=== PATIENT | female | born 1980 ===

== ENCOUNTER → 2017-01-10 | Day surgery (SDC) | payer OTHER ==
--- NOTE | 2017-01-09 14:28 | GHP ---
[f rep st] HISTORY AND PHYSICAL DATE OF ADMISSION: 01/10/2017 The patient is a 36-year-old 2, para 1, who was being seen for a new OB appointment, ultrasound was done, and it was found that there was no heart rate at 9 weeks and 2 days. The original ultrasound was done on 01/06/2017, and this showed 1 fetus, a gestational sac at 6 weeks and 6 days, a crown-rump length at 6 weeks and 1 day, with a yolk sac that was enlarged at 6 mm, and no cardiac activity. The patient requested beta quantitatives. The first one was done on 01/06, and that was [phone]. The second one was done on 01/08, that was at [phone]. The patient requested second ultrasound, which was done on 2016, where again, size less than dates by 24 days, gestational sac was flattened. Gestational age by LMP should equal out to 9 weeks and 5 days, but it was found to only be 6 weeks size today. The patient then consented to D and C, which was scheduled on 01/10/2017 at noon. Per patient, is A negative, so patient will need RhoGAM with D and C. MEDICAL HISTORY: Previously had mono in childhood. The patient had scarlet fever in 2014. Previous history: Previous in 2013, had a baby girl at 8 pounds, 3 ounces at 40 and 3/7 weeks, arrest of dilatation, GDM. The patient's baby was found to have a cardiomyopathy at 5 months, and baby ended up getting a heart transplant. Surgical history:previous section in 2013 GYNECOLOGICAL HISTORY: Previous OCP use. Previous abnormal Pap. Positive HPV in 2013.Cryosurgery in 2013. Rare yeast infections. ALLERGIES: NKDA. MEDICATIONS: None. SOCIAL HISTORY: Denies drug use. No longer a smoker, quit with her last . The patient's significant other is Mariano. FAMILY HISTORY: Noncontributory. PHYSICAL EXAMINATION: GENERAL: Patient is awake, alert, oriented x3. LUNGS: Clear bilaterally. ABDOMEN: Bowel sounds are positive in all 4 quadrants. EXTREMITIES: DTRs were 1+ bilaterally. No clonus. Homans sign was negative. VITAL SIGNS: With initial new OB, were within normal limits. Blood pressure was 114/50. The patient today, on 01/09/2017, with positive smal amount of vaginal bleeding. PLAN OF CARE: 1. With visit today, all risks, benefits, and alternatives of D and C were discussed. The patient was made aware of n.p.o. after midnight. The patient understood she needed to be in labor and delivery by 10 a.m. on 01/10/2017 for noon surgery.. 2. Patient was made aware that she is Rh-negative and needs to receive RhoGAM after this procedure.. 3. This is a missed AB. No heart, no cardiac activity on ultrasound 1 or ultrasound 2. Beta quantitatives were declining. /[id number]/MODL MTDD
[~2017-01-10] MED LIST: DOXYCYCLINE HYCLATE 100 MG CAP/TAB ONE; DOXYCYCLINE HYCLATE 100 MG CAP/TAB PO ONE; KETOROLAC 30 MG/1 ML SDV ONE; LIDOCAINE 2% 5 ML SDV ONE; METOCLOPRAMIDE 10 MG/2 ML VIAL IVP PRN; MIDAZOLAM 2 MG/2 ML VIAL IVP ONE; NALOXONE HCL 0.4 MG/ML INJ IVP PRN; ONDANSETRON 4 MG/2 ML VIAL IVP PRN; PROPOFOL 200 MG/20 ML VIAL ONE; PROPOFOL/EMULSION 500 MG/50 ML BOTTLE IV ONE; fentaNYL 100 MCG/2 ML INJ IVP PRN; fentaNYL 100 MCG/2 ML INJ ONE
[2017-01-10 12:30] LABS: % IMMATURE GRANULYOCYTES 0.2 % (0.0-1.1); ABSOLUTE IMMATURE GRANULOCYTES 0.01 10^3/uL (0.00-0.10); ADD DIFF? NO; ADD MORPH? NO; ADD SCAN? NO; ATYPICAL LYMPHOCYTE FLAG 0 (0-99); FRAGMENT RBC FLAG 0 (0-99); HEMATOCRIT 39.4 % (38.0-47.0); HEMOGLOBIN 13.1 g/dL (12.6-16.3); LEFT SHIFT FLG 0 (0-99); LIPEMIA HEMOLYSIS FLAG 80 (0-99); MEAN CELL HEMOGLOBIN CONCENTR. 33.2 g/dL (32.4-36.7); MEAN CELL VOLUME 93.4 fL (81.5-99.8); MEAN PLATELET VOLUME 9.8 fL (8.7-11.7); PLATELET CLUMPS FLAG 0 (0-99); PLATELET COUNT 203 10^3/uL (150-400); RED BLOOD CELL COUNT 4.22 10^6/uL (4.18-5.33); RED CELL DISTRIBUTION WIDTH 12.3 % (11.5-15.2)
--- NOTE | 2017-01-10 15:06 | PDANEPAE ---
ANE History of Present Illness Missed AB at 6 wks GA ANE Past Medical History - Cardiovascular History Hx Hypertension: No Hx Arrhythmias: No Hx Chest Pain: No Hx Coronary Artery / Peripheral Vascular Disease: No Hx CHF / Valvular Disease: Yes Hx Palpitations: No - Pulmonary History Hx Oxygen in Use at Home: No ANE Review of Systems - Systems Cardiac: Reports: other (Murmur, mitral valve prolapse, asymptomatic) Respiratory: Reports: no symptoms ANE Patient History - Allergies Allergies/Adverse Reactions: No Known Allergies Allergy (Unverified 10/12/13 11:54) - Home Medications Home Medications: 1 cap PO DAILY 11/24/13 [Last Taken 11/24/13] - Smoking Hx Smoking Status: Former smoker ANE Labs/Vital Signs - Labs Result Diagrams: 01/10/17 12:10 - Vital Signs Height: 154.94 cm Weight: 61.235 kg ANE Physical Exam - Airway Mallampati Score: Class 1 - Pulmonary Pulmonary: no respiratory distress, clear to auscultation - Cardiovascular Cardiovascular: regular rate and rhythym, no murmur, rub, or gallop - ASA Status ASA Status: II ANE Anesthesia Plan Anesthesia Plan: MAC (Mod/deep IV sedation + oxygen)
--- NOTE | 2017-01-10 17:06 | POSTANESTH ---
Post Anesthetic Evaluation Cardiovascular Status: Normal, Stable, Similar to Pre-Op Cond Respiratory Status: Normal, Stable, Similar to Pre-op Cond. Level of Consciousness/Mental Status: Can Participate in Eval, Mildly Sleepy, Arousable Pain Control: Adequate, Prn Tx Ordered Nausea/Vomiting Control: Adequate, Prn Tx Ordered Complications Possibly Related to Anesthesia: None Noted
== END | disposition home or self-care (01) ==
LOC: FOBOP 11:07
PROVIDERS: ATTEND Obstetrics & Gynecology
PROC: 10D17ZZ Extraction of Products of Conception, Retained, Via Natural or Artificial Opening (ICD-10-PCS; principal; 2017-01-10)
DX: O02.1 Missed abortion (principal); Z3A.01 Less than 8 weeks gestation of pregnancy; I34.1 Nonrheumatic mitral (valve) prolapse; Z87.891 Personal history of nicotine dependence; Z87.59 Personal history of other complications of pregnancy, childbirth and the puerperium
CPT/HCPCS: J1885; J2250; J2704; J3010

== ENCOUNTER → 2017-09-08 | Outpatient (CLI) | payer OTHER ==
[~2017-09-08] MED LIST changes: -DOXYCYCLINE HYCLATE 100 MG CAP/TAB ONE; -DOXYCYCLINE HYCLATE 100 MG CAP/TAB PO ONE; +IOPAMIDOL (ISOVUE 370) 100 ML BTL IV ONE; -KETOROLAC 30 MG/1 ML SDV ONE; -LIDOCAINE 2% 5 ML SDV ONE; -METOCLOPRAMIDE 10 MG/2 ML VIAL IVP PRN; -MIDAZOLAM 2 MG/2 ML VIAL IVP ONE; -NALOXONE HCL 0.4 MG/ML INJ IVP PRN; -ONDANSETRON 4 MG/2 ML VIAL IVP PRN; -PROPOFOL 200 MG/20 ML VIAL ONE; -PROPOFOL/EMULSION 500 MG/50 ML BOTTLE IV ONE; -fentaNYL 100 MCG/2 ML INJ IVP PRN; -fentaNYL 100 MCG/2 ML INJ ONE
== END ==
LOC: FIMAGING 13:07
PROVIDERS: ATTEND Obstetrics & Gynecology
DX: Z31.41 Encounter for fertility testing (principal); N97.9 Female infertility, unspecified
CPT/HCPCS: Q9967

== ENCOUNTER → 2017-12-15 | Outpatient (CLI) | payer OTHER | LOC: FIMAGING 13:49 | PROVIDERS: ATTEND Advanced Practice Midwife | DX: O99.411 Diseases of the circulatory system complicating pregnancy, first trimester (principal); O34.219 Maternal care for unspecified type scar from previous cesarean delivery; O09.521 Supervision of elderly multigravida, first trimester; I35.0 Nonrheumatic aortic (valve) stenosis; Z87.59 Personal history of other complications of pregnancy, childbirth and the puerperium; Z82.49 Family history of ischemic heart disease and other diseases of the circulatory system; Z14.8 Genetic carrier of other disease; Z3A.12 12 weeks gestation of pregnancy ==

== ENCOUNTER → 2018-02-09 | Outpatient (CLI) | payer OTHER | LOC: FIMAGING 10:06 | PROVIDERS: ATTEND Advanced Practice Midwife | DX: O09.522 Supervision of elderly multigravida, second trimester (principal); O09.292 Supervision of pregnancy with other poor reproductive or obstetric history, second trimester; Z3A.20 20 weeks gestation of pregnancy ==

== ENCOUNTER → 2018-03-12 | Outpatient (CLI) | payer OTHER | LOC: FIMAGING 10:25 | PROVIDERS: ATTEND Advanced Practice Midwife | DX: O09.522 Supervision of elderly multigravida, second trimester (principal); Z3A.24 24 weeks gestation of pregnancy; O24.419 Gestational diabetes mellitus in pregnancy, unspecified control ==

== ENCOUNTER → 2018-05-04 | Outpatient (CLI) | payer OTHER | LOC: FIMAGING 12:22 | PROVIDERS: ATTEND Advanced Practice Midwife | DX: O09.523 Supervision of elderly multigravida, third trimester (principal); O24.419 Gestational diabetes mellitus in pregnancy, unspecified control; O34.219 Maternal care for unspecified type scar from previous cesarean delivery; Z3A.32 32 weeks gestation of pregnancy ==

== ENCOUNTER 2018-10-21 09:56 | Outpatient (CLI) | payer OTHER | END 2018-12-31 | LOC: EMCIMAGING 09:56 ==

== ENCOUNTER → 2018-11-13 | Outpatient (CLI) | payer OTHER | LOC: FCPNEURO 21:00 | PROVIDERS: ATTEND Psychiatry & Neurology Sleep Medicine | DX: G47.33 Obstructive sleep apnea (adult) (pediatric) (principal) ==